=== PATIENT | female | born 1990 | race Caucasian/White ===

== ENCOUNTER 2016-11-13 10:26 | Outpatient (CLI) | payer MEDICAID ==
[2016-11-13 11:09] LABS: APPEARANCE,URINE CLEAR; BILIRUBIN,URINE NEGATIVE (NEGATIVE); GLUCOSE, URINE NEGATIVE (NEGATIVE); KETONES,URINE NEGATIVE (NEGATIVE); LEUKOCYTE ESTERASE,URINE TRACE (NEGATIVE); NITRITE,URINE NEGATIVE (NEGATIVE); PROTEIN,URINE NEGATIVE (NEGATIVE); URINE SPECIFIC GRAVITY 1.014
[2016-11-13 11:24] LABS: URINE BARBITURATES SCREEN NEGATIVE; URINE METHADONE SCREEN NEGATIVE; URINE OPIATES LOW NEGATIVE; URINE PHENCYCLIDINE SCREEN NEGATIVE
[2016-11-13] MEDS ORDERED: ONDANSETRON 4 MG TAB.RAPDIS PO ONE (12:39)
[2016-11-13] MEDS ORDERED: ONDANSETRON 4 MG TAB.RAPDIS ONE (12:45)
--- NOTE | 2016-11-13 12:50 | Non Stress Test Report ---
Non Stress Test Datetime Report Generated by CPN: 11/13/2016 12:50 DEMOGRAPHIC Test Number: 1 EGA NST: 33.3 INDICATION Indication for Study: Ordered by Provider Indication for Study (NST) Other: LC MONITORING Monitor Explained: Monitor Explained; Test Explained; Patient Verbalized Understanding Time on Monitor: 11/13/2016 10:45 Time off Monitor: 11/13/2016 12:36 NST Duration: 111 NST INTERVENTIONS NST Interventions: PO Hydration Physician Notified NST: J. Benson, CNM BABY A: [id number] BABY A Movement : Present Contraction Frequency : Irritability FHR Baseline : 140 Accelerations : 15X15 Decelerations : None Variability : Moderate 6-25bpm NST Review: Meets Criteria for Reactive NST NST Review and Verified By : LIA Mckoy Results: Reactive NST REPORT Report Trigger: Send Report
== END 2016-11-13 12:44 | disposition home or self-care (01) ==
LOC: LC 10:26
PROVIDERS: ATTEND Specialist
PROC: 4A1HXCZ Monitoring of Products of Conception, Cardiac Rate, External Approach (ICD-10-PCS; principal; 2016-11-13)
DX: O47.03 False labor before 37 completed weeks of gestation, third trimester (principal); Z3A.33 33 weeks gestation of pregnancy
CPT/HCPCS: 59025; 81001; 80307; S0119

== ENCOUNTER 2016-11-20 08:42 | Outpatient (CLI) | payer MEDICAID ==
[2016-11-20 09:28] LABS: ABSOLUTE EOSINOPHILS # (AUTO) 0.1 10^3/uL (0.0-0.6); ABSOLUTE LYMPHOCYTES (AUTO) 1.1 10^3/uL (0.5-4.7); ABSOLUTE MONOCYTES (AUTO) 0.6 10^3/uL (0.1-1.4); ABSOLUTE NEUT (AUTO) 6.7 10^3/uL (1.7-8.2); BASOPHILS % (AUTO) 0.3 % (0-2); EOSINOPHILS % (AUTO) 0.9 % (0-6); HEMATOCRIT 35.9 % (36.0-47.0); HEMOGLOBIN 12.5 g/dL (12.0-15.5); HGB HCT DIFFERENCE 1.6; LYMPHOCYTES % (AUTO) 12.8 % (13-45); MEAN CORPUSCULAR HEMOGLOBIN 30.7 pg (27.0-33.4); MEAN CORPUSCULAR HGB CONC 34.7 g/dL (32.0-36.0); MEAN CORPUSCULAR VOLUME 89 fl (80-97); MONOCYTES % (AUTO) 7.3 % (3-13); RED BLOOD COUNT 4.06 10^6/uL (3.72-5.28); RED CELL DISTRIBUTION WIDTH 12.1 % (11.5-14.0); SEGMENTED NEUTROPHILS % (AUTO) 78.7 % (42-78); WHITE BLOOD COUNT 8.5 10^3/uL (4.0-10.5)
[2016-11-20 09:34] LABS: APPEARANCE,URINE SLIGHTLY-CLOUDY; BILIRUBIN,URINE NEGATIVE (NEGATIVE); GLUCOSE, URINE NEGATIVE (NEGATIVE); KETONES,URINE NEGATIVE (NEGATIVE); LEUKOCYTE ESTERASE,URINE MODERATE (NEGATIVE); NITRITE,URINE NEGATIVE (NEGATIVE); PROTEIN,URINE 30 mg/dL (NEGATIVE); URINE SPECIFIC GRAVITY 1.016
[2016-11-20 09:58] LABS: URINE CREATININE 122.7 mg/dL (16-327); URINE PROTEIN 30.9 mg/dL (<12)
[2016-11-20 09:59] LABS: URINE BARBITURATES SCREEN NEGATIVE; URINE METHADONE SCREEN NEGATIVE; URINE OPIATES LOW NEGATIVE; URINE PHENCYCLIDINE SCREEN NEGATIVE
[2016-11-20 10:02] LABS: ALANINE AMINOTRANSFERASE 52 U/L (9-52); ALBUMIN 3.2 g/dL (3.5-5.0); ALKALINE PHOSPHATASE 122 U/L (38-126); ANION GAP 9 (5-19); ASPARTATE AMINO TRANSFERASE 29 U/L (14-36); BILIRUBIN,DIRECT 0.3 mg/dL (0.0-0.4); BILIRUBIN,TOTAL 0.4 mg/dL (0.2-1.3); BLOOD UREA NITROGEN 6 mg/dL (7-20); CALCIUM 9.1 mg/dL (8.4-10.2); CARBON DIOXIDE 22 mmol/L (22-30); CHLORIDE 105 mmol/L (98-107); CREATININE RESULT 0.54 mg/dL (0.52-1.25); GLUCOSE 76 mg/dL (75-110); LDH 344 U/L (313-618); POTASSIUM 4.1 mmol/L (3.6-5.0); SODIUM 136.4 mmol/L (137-145); TOTAL PROTEIN 5.8 g/dL (6.3-8.2); URIC ACID 3.9 mg/dL (2.5-6.2)
== END 2016-11-20 10:21 | disposition home or self-care (01) ==
LOC: LC 08:42
PROVIDERS: ATTEND Specialist
DX: Z34.83 Encounter for supervision of other normal pregnancy, third trimester (principal); Z3A.34 34 weeks gestation of pregnancy
CPT/HCPCS: 36415; 59025; 80053; 80307; 81001; 82570; 83615; 84156; 84550; 85025

== ENCOUNTER 2016-11-22 10:32 | Outpatient (CLI) | payer MEDICAID ==
--- NOTE | 2016-11-22 10:45 | Non Stress Test Report ---
Non Stress Test Datetime Report Generated by CPN: 11/22/2016 10:45 DEMOGRAPHIC EGA NST: 34.3 INDICATION Indication for Study: Ordered by Provider MONITORING Monitor Explained: Monitor Explained; Test Explained; Patient Verbalized Understanding Time on Monitor: 11/20/2016 09:01 Time off Monitor: 11/20/2016 10:13 NST Duration: 72 NST INTERVENTIONS NST Interventions: None Physician Notified NST: A. Emmel, CNM BABY A: [id number] BABY A Movement : Present Contraction Frequency : occasional FHR Baseline : 150 Accelerations : 15X15 Decelerations : None Variability : Moderate 6-25bpm NST Review: Meets Criteria for Reactive NST NST Review and Verified By : Agnieszka Grace RN NSJosse Results: Reactive NST REPORT Report Trigger: Send Report
--- NOTE | 2016-11-22 11:35 | Non Stress Test Report ---
Non Stress Test Datetime Report Generated by CPN: 11/22/2016 11:35 DEMOGRAPHIC EGA NST: 34.5 INDICATION Indication for Study: Ordered by Provider MONITORING Monitor Explained: Monitor Explained; Test Explained; Patient Verbalized Understanding Time on Monitor: 11/22/2016 10:46 Time off Monitor: 11/22/2016 11:21 NST Duration: 35 NST INTERVENTIONS NST Interventions: PO Hydration Physician Notified NST: Ata Perez, CNM reviewed strip, orders received to send home BABY A Movement : Present Contraction Frequency : none FHR Baseline : 140 Accelerations : 15X15 Decelerations : None Variability : Moderate 6-25bpm NST Review: Meets Criteria for Reactive NST NST Review and Verified By : ILA Mckoy Results: Reactive NST REPORT Report Trigger: Send Report
== END 2016-11-22 11:32 | disposition home or self-care (01) ==
LOC: LC 10:32
PROVIDERS: ATTEND Obstetrics & Gynecology
DX: Z34.83 Encounter for supervision of other normal pregnancy, third trimester (principal); Z3A.34 34 weeks gestation of pregnancy
CPT/HCPCS: 59025

== ENCOUNTER 2016-11-26 10:02 | Outpatient (CLI) | payer MEDICAID ==
[2016-11-26 10:42] LABS: ABSOLUTE BASOPHILS # (AUTO) 0.1 10^3/uL (0.0-0.2); ABSOLUTE EOSINOPHILS # (AUTO) 0.1 10^3/uL (0.0-0.6); ABSOLUTE LYMPHOCYTES (AUTO) 1.3 10^3/uL (0.5-4.7); ABSOLUTE MONOCYTES (AUTO) 0.6 10^3/uL (0.1-1.4); ABSOLUTE NEUT (AUTO) 8.7 10^3/uL (1.7-8.2); BASOPHILS % (AUTO) 0.9 % (0-2); EOSINOPHILS % (AUTO) 0.7 % (0-6); HEMATOCRIT 36.8 % (36.0-47.0); HEMOGLOBIN 12.6 g/dL (12.0-15.5); LYMPHOCYTES % (AUTO) 12.2 % (13-45); MEAN CORPUSCULAR HEMOGLOBIN 30.2 pg (27.0-33.4); MEAN CORPUSCULAR HGB CONC 34.3 g/dL (32.0-36.0); MEAN CORPUSCULAR VOLUME 88 fl (80-97); MONOCYTES % (AUTO) 5.9 % (3-13); RED BLOOD COUNT 4.18 10^6/uL (3.72-5.28); RED CELL DISTRIBUTION WIDTH 12.3 % (11.5-14.0); SEGMENTED NEUTROPHILS % (AUTO) 80.3 % (42-78); WHITE BLOOD COUNT 10.8 10^3/uL (4.0-10.5)
[2016-11-26 10:50] LABS: APPEARANCE,URINE CLOUDY; BILIRUBIN,URINE NEGATIVE (NEGATIVE); GLUCOSE, URINE 50 mg/dL (NEGATIVE); KETONES,URINE NEGATIVE (NEGATIVE); LEUKOCYTE ESTERASE,URINE LARGE (NEGATIVE); NITRITE,URINE NEGATIVE (NEGATIVE); PROTEIN,URINE 30 mg/dL (NEGATIVE); URINE SPECIFIC GRAVITY 1.015
[2016-11-26 11:07] LABS: URIC ACID 3.9 mg/dL (2.5-6.2)
[2016-11-26 11:18] LABS: URINE CREATININE 86.3 mg/dL (16-327)
[2016-11-26 11:21] LABS: URINE BARBITURATES SCREEN NEGATIVE; URINE METHADONE SCREEN NEGATIVE; URINE OPIATES LOW NEGATIVE; URINE PHENCYCLIDINE SCREEN NEGATIVE
== END 2016-11-26 11:50 | disposition home or self-care (01) ==
LOC: LC 10:02
PROVIDERS: ATTEND Obstetrics & Gynecology
PROC: 4A1HXCZ Monitoring of Products of Conception, Cardiac Rate, External Approach (ICD-10-PCS; principal; 2016-11-26)
DX: O16.3 Unspecified maternal hypertension, third trimester (principal); Z3A.35 35 weeks gestation of pregnancy
CPT/HCPCS: 36415; 80307; 81001; 82570; 83615; 84156; 84550; 85025

== ENCOUNTER 2016-11-28 10:04 | Outpatient (CLI) | payer MEDICAID ==
--- NOTE | 2016-11-28 10:14 | Non Stress Test Report ---
Non Stress Test Datetime Report Generated by CPN: 11/28/2016 10:14 DEMOGRAPHIC EGA NST: 35.2 INDICATION Indication for Study: Ordered by Provider Indication for Study (NST) Other: nst MONITORING Monitor Explained: Monitor Explained; Test Explained; Patient Verbalized Understanding Time on Monitor: 11/26/2016 11:20 Time off Monitor: 11/26/2016 11:40 NST Duration: 20 NST INTERVENTIONS NST Interventions: PO Hydration; Reposition Patient Physician Notified NST: J Benson CNM BABY A: [id number] BABY A Movement : Present Movement : Present Contraction Frequency : irregular Contraction Frequency : irr FHR Baseline : 140 Accelerations : 15X15 Decelerations : None Variability : Moderate 6-25bpm NST Review: Meets Criteria for Reactive NST NST Review: Meets Criteria for Reactive NST NST Review and Verified By : Manisha Pope RN NST Results: Reactive NST REPORT Report Trigger: Send Report
[2016-11-28 10:46] LABS: AMORPHOUS SEDIMENT,URINE TRACE /HPF; APPEARANCE,URINE CLOUDY; BILIRUBIN,URINE NEGATIVE (NEGATIVE); GLUCOSE, URINE NEGATIVE (NEGATIVE); KETONES,URINE NEGATIVE (NEGATIVE); LEUKOCYTE ESTERASE,URINE LARGE (NEGATIVE); NITRITE,URINE NEGATIVE (NEGATIVE); PROTEIN,URINE 30 mg/dL (NEGATIVE); URINE SPECIFIC GRAVITY 1.018
[2016-11-28 10:53] LABS: ABSOLUTE EOSINOPHILS # (AUTO) 0.1 10^3/uL (0.0-0.6); ABSOLUTE LYMPHOCYTES (AUTO) 1.5 10^3/uL (0.5-4.7); ABSOLUTE MONOCYTES (AUTO) 0.7 10^3/uL (0.1-1.4); ABSOLUTE NEUT (AUTO) 6.5 10^3/uL (1.7-8.2); BASOPHILS % (AUTO) 0.4 % (0-2); EOSINOPHILS % (AUTO) 0.7 % (0-6); HEMATOCRIT 35.5 % (36.0-47.0); HEMOGLOBIN 12.4 g/dL (12.0-15.5); HGB HCT DIFFERENCE 1.7; LYMPHOCYTES % (AUTO) 16.8 % (13-45); MEAN CORPUSCULAR HEMOGLOBIN 29.8 pg (27.0-33.4); MEAN CORPUSCULAR HGB CONC 34.9 g/dL (32.0-36.0); MEAN CORPUSCULAR VOLUME 86 fl (80-97); MONOCYTES % (AUTO) 7.7 % (3-13); RED BLOOD COUNT 4.15 10^6/uL (3.72-5.28); RED CELL DISTRIBUTION WIDTH 12.6 % (11.5-14.0); SEGMENTED NEUTROPHILS % (AUTO) 74.4 % (42-78); WHITE BLOOD COUNT 8.8 10^3/uL (4.0-10.5)
[2016-11-28 11:00] LABS: ALANINE AMINOTRANSFERASE 38 U/L (9-52); ALBUMIN 3.4 g/dL (3.5-5.0); ALKALINE PHOSPHATASE 144 U/L (38-126); ANION GAP 10 (5-19); ASPARTATE AMINO TRANSFERASE 22 U/L (14-36); BILIRUBIN,DIRECT 0.3 mg/dL (0.0-0.4); BILIRUBIN,TOTAL 0.4 mg/dL (0.2-1.3); BLOOD UREA NITROGEN 5 mg/dL (7-20); CALCIUM 9.5 mg/dL (8.4-10.2); CARBON DIOXIDE 21 mmol/L (22-30); CHLORIDE 105 mmol/L (98-107); CREATININE RESULT 0.56 mg/dL (0.52-1.25); GLUCOSE 78 mg/dL (75-110); LDH 326 U/L (313-618); POTASSIUM 4.2 mmol/L (3.6-5.0); SODIUM 136.1 mmol/L (137-145); URIC ACID 3.9 mg/dL (2.5-6.2)
[2016-11-28 11:22] LABS: URINE CREATININE 125.9 mg/dL (16-327); URINE PROTEIN 19.9 mg/dL (<12)
[2016-11-28] MEDS ORDERED: CEFTRIAXONE INJ 1000 MG VIAL IM ONE (12:52)
[2016-11-28] MEDS ORDERED: HYDROXYZINE PAMOATE 50 MG CAPSULE PO ONE (12:52)
[2016-11-28] MEDS ORDERED: HYDROXYZINE PAMOATE 50 MG CAPSULE ONE (13:11)
[2016-11-28] MEDS ORDERED: CEFTRIAXONE 1 GM/D5W RTU 1 GM/50 ML RTUPB IV ONE (13:11)
[2016-11-28] MEDS ORDERED: NIFEDIPINE 10 MG CAPSULE PO ONE (14:45)
[2016-11-28] MEDS ORDERED: OXYCODONE-ACETAMINOPHEN 5-325 MG TABLET PO ONE (14:46)
[2016-11-28] MEDS ORDERED: OXYCODONE-ACETAMINOPHEN 5-325 MG TABLET ONE (14:53)
[2016-11-28] MEDS ORDERED: NIFEDIPINE 10 MG CAPSULE ONE (14:53)
--- NOTE | 2016-11-28 18:01 | RADIOLOGY REPORT (SQ) ---
EXAM DESCRIPTION: U/S OB LIMITED COMPLETED DATE/TIME: 11/28/2016 5:54 pm REASON FOR STUDY: Cervical length-- contractions COMPARISON: None. TECHNIQUE: Limited transabdominal grayscale ultrasound for evaluation of specific requested obstetri belkis parameters. LIMITATIONS: None. FINDINGS: CERVICAL LENGTH: 4.4 cm. Closed. PILO: 26.4 cm. FHR: 153 beats per minute. PRESENTATION: Cephalic. OTHER: The placenta is posterior and fundal in location. IMPRESSION: LIMITED OBSTETRICAL ULTRASOUND WITH MEASURED PARAMETERS DELINEATED ABOVE. Trimester of : Third trimester - 28 weeks to delivery. TECHNICAL DOCUMENTATION: JOB ID: [id number] [employer]- All Rights Reserved
== END 2016-11-28 18:46 | disposition home or self-care (01) ==
LOC: LC 10:04
PROVIDERS: ATTEND Obstetrics & Gynecology
PROC: 4A1HXCZ Monitoring of Products of Conception, Cardiac Rate, External Approach (ICD-10-PCS; principal; 2016-11-28)
DX: O47.03 False labor before 37 completed weeks of gestation, third trimester (principal); Z3A.35 35 weeks gestation of pregnancy
CPT/HCPCS: 59025; 36415; 83615; 84156; 84550; 82570; 85025; 80053; 81001; 76815; J3490 ×2; J0696

== ENCOUNTER 2016-11-29 21:56 | Outpatient (CLI) | payer MEDICAID ==
[2016-11-29 23:20] LABS: APPEARANCE,URINE SLIGHTLY-CLOUDY; BILIRUBIN,URINE NEGATIVE (NEGATIVE); GLUCOSE, URINE NEGATIVE (NEGATIVE); KETONES,URINE 80 mg/dL (NEGATIVE); LEUKOCYTE ESTERASE,URINE SMALL (NEGATIVE); NITRITE,URINE NEGATIVE (NEGATIVE); PROTEIN,URINE 30 mg/dL (NEGATIVE); URINE SPECIFIC GRAVITY 1.026
[2016-11-29 23:38] LABS: URINE BARBITURATES SCREEN NEGATIVE; URINE METHADONE SCREEN NEGATIVE; URINE OPIATES LOW NEGATIVE; URINE PHENCYCLIDINE SCREEN NEGATIVE
--- NOTE | 2016-11-29 23:40 | Non Stress Test Report ---
Non Stress Test Datetime Report Generated by CPN: 11/29/2016 23:40 DEMOGRAPHIC EGA NST: 35.5 EGA NST: 35.4 INDICATION Indication for Study: Ordered by Provider Indication for Study: Other Indication for Study (NST) Other: Pre E work up VITAL SIGNS Temperature - NST: 98.0 URINE RESULTS Urine Protein, NST: Negative Urine Ketones - NST: Positive Urine Glucose - NST: Negative Urine Blood - NST: Negative MONITORING Monitor Explained: Monitor Explained; Test Explained; Patient Verbalized Understanding Monitor Explained: Monitor Explained; Test Explained; Patient Verbalized Understanding Time on Monitor: 11/29/2016 23:12 Time on Monitor: 11/28/2016 10:20 NST INTERVENTIONS NST Interventions: PO Hydration; Reposition Patient Physician Notified NST: Neilsen BABY A: [id number] BABY A Movement : Present Contraction Frequency : 2-5 FHR Baseline : 140 Accelerations : 15X15 Decelerations : None Variability : Moderate 6-25bpm NST Review: Meets Criteria for Reactive NST NST Review and Verified By : B. Ring RN NST Results: Reactive NST REPORT Report Trigger: Send Report
== END 2016-11-29 23:42 | disposition home or self-care (01) ==
LOC: LC 21:56
PROVIDERS: ATTEND Specialist
PROC: 4A1HXCZ Monitoring of Products of Conception, Cardiac Rate, External Approach (ICD-10-PCS; principal; 2016-11-29)
DX: O14.93 Unspecified pre-eclampsia, third trimester (principal); Z3A.35 35 weeks gestation of pregnancy
CPT/HCPCS: 59025; 80307; 81001

== ENCOUNTER 2016-12-02 09:10 | Outpatient (CLI) | payer MEDICAID ==
[2016-12-02 10:03] LABS: ABSOLUTE BASOPHILS # (AUTO) 0.1 10^3/uL (0.0-0.2); ABSOLUTE EOSINOPHILS # (AUTO) 0.1 10^3/uL (0.0-0.6); ABSOLUTE LYMPHOCYTES (AUTO) 1.3 10^3/uL (0.5-4.7); ABSOLUTE MONOCYTES (AUTO) 0.6 10^3/uL (0.1-1.4); BASOPHILS % (AUTO) 0.6 % (0-2); EOSINOPHILS % (AUTO) 0.7 % (0-6); HEMATOCRIT 35.1 % (36.0-47.0); HEMOGLOBIN 12.6 g/dL (12.0-15.5); HGB HCT DIFFERENCE 2.7; LYMPHOCYTES % (AUTO) 14.6 % (13-45); MEAN CORPUSCULAR HEMOGLOBIN 30.8 pg (27.0-33.4); MEAN CORPUSCULAR HGB CONC 35.9 g/dL (32.0-36.0); MEAN CORPUSCULAR VOLUME 86 fl (80-97); MONOCYTES % (AUTO) 6.4 % (3-13); RED BLOOD COUNT 4.09 10^6/uL (3.72-5.28); RED CELL DISTRIBUTION WIDTH 12.6 % (11.5-14.0); SEGMENTED NEUTROPHILS % (AUTO) 77.7 % (42-78)
[2016-12-02 10:10] LABS: APPEARANCE,URINE SLIGHTLY-CLOUDY; BILIRUBIN,URINE NEGATIVE (NEGATIVE); GLUCOSE, URINE NEGATIVE (NEGATIVE); KETONES,URINE NEGATIVE (NEGATIVE); LEUKOCYTE ESTERASE,URINE LARGE (NEGATIVE); NITRITE,URINE NEGATIVE (NEGATIVE); PROTEIN,URINE NEGATIVE (NEGATIVE); UROBILINOGEN,URINE NEGATIVE mg/dL (<2.0)
--- NOTE | 2016-12-02 10:18 | Non Stress Test Report ---
Non Stress Test Datetime Report Generated by CPN: 12/02/2016 10:17 DEMOGRAPHIC EGA NST: 36.1 INDICATION Indication for Study: Gestational Hypertension; Ordered by Provider MONITORING Monitor Explained: Monitor Explained; Test Explained; Patient Verbalized Understanding Time on Monitor: 12/02/2016 09:22 Time off Monitor: 12/02/2016 10:03 NST Duration: 41 NST INTERVENTIONS NST Interventions: PO Hydration Physician Notified NST: H. Gulshan, CNM BABY A: [id number] BABY A Movement : Present Contraction Frequency : 3-5 FHR Baseline : 145 Accelerations : 15X15 Decelerations : None Variability : Moderate 6-25bpm NST Review: Meets Criteria for Reactive NST NST Review and Verified By : LIA Mckoy Results: Reactive NST REPORT Report Trigger: Send Report
[2016-12-02 10:26] LABS: ALANINE AMINOTRANSFERASE 28 U/L (9-52); ALBUMIN 3.2 g/dL (3.5-5.0); ALKALINE PHOSPHATASE 135 U/L (38-126); ANION GAP 7 (5-19); ASPARTATE AMINO TRANSFERASE 19 U/L (14-36); BILIRUBIN,DIRECT 0.3 mg/dL (0.0-0.4); BILIRUBIN,TOTAL 0.3 mg/dL (0.2-1.3); BLOOD UREA NITROGEN 5 mg/dL (7-20); CALCIUM 9.3 mg/dL (8.4-10.2); CARBON DIOXIDE 24 mmol/L (22-30); CHLORIDE 107 mmol/L (98-107); CREATININE RESULT 0.53 mg/dL (0.52-1.25); GLUCOSE 92 mg/dL (75-110); LDH 374 U/L (313-618); SODIUM 138.4 mmol/L (137-145); TOTAL PROTEIN 5.7 g/dL (6.3-8.2); URIC ACID 4.2 mg/dL (2.5-6.2)
[2016-12-02 10:28] LABS: URINE BARBITURATES SCREEN NEGATIVE; URINE METHADONE SCREEN NEGATIVE; URINE OPIATES LOW NEGATIVE; URINE PHENCYCLIDINE SCREEN NEGATIVE
[2016-12-02 10:37] LABS: URINE CREATININE 82.2 mg/dL (16-327); URINE PROTEIN 23.3 mg/dL (<12)
== END 2016-12-02 11:17 | disposition home or self-care (01) ==
LOC: LC 09:10
PROVIDERS: ATTEND Obstetrics & Gynecology
PROC: 4A1HXCZ Monitoring of Products of Conception, Cardiac Rate, External Approach (ICD-10-PCS; principal; 2016-12-02)
DX: O13.3 Gestational [pregnancy-induced] hypertension without significant proteinuria, third trimester (principal); Z3A.36 36 weeks gestation of pregnancy
CPT/HCPCS: 36415; 59025; 80053; 80307; 81001; 82570; 83615; 84156; 84550; 85025

== ENCOUNTER 2016-12-04 14:37 | Outpatient (CLI) | payer MEDICAID ==
[2016-12-04 16:04] LABS: ABSOLUTE EOSINOPHILS # (AUTO) 0.1 10^3/uL (0.0-0.6); ABSOLUTE LYMPHOCYTES (AUTO) 1.6 10^3/uL (0.5-4.7); ABSOLUTE MONOCYTES (AUTO) 0.7 10^3/uL (0.1-1.4); ABSOLUTE NEUT (AUTO) 7.2 10^3/uL (1.7-8.2); BASOPHILS % (AUTO) 0.4 % (0-2); EOSINOPHILS % (AUTO) 1.1 % (0-6); HEMATOCRIT 34.3 % (36.0-47.0); HEMOGLOBIN 11.8 g/dL (12.0-15.5); HGB HCT DIFFERENCE 1.1; LYMPHOCYTES % (AUTO) 16.2 % (13-45); MEAN CORPUSCULAR HEMOGLOBIN 29.6 pg (27.0-33.4); MEAN CORPUSCULAR HGB CONC 34.4 g/dL (32.0-36.0); MEAN CORPUSCULAR VOLUME 86 fl (80-97); MONOCYTES % (AUTO) 7.4 % (3-13); RED BLOOD COUNT 3.99 10^6/uL (3.72-5.28); RED CELL DISTRIBUTION WIDTH 12.6 % (11.5-14.0); SEGMENTED NEUTROPHILS % (AUTO) 74.9 % (42-78); WHITE BLOOD COUNT 9.7 10^3/uL (4.0-10.5)
[2016-12-04 16:07] LABS: ALANINE AMINOTRANSFERASE 30 U/L (9-52); ALBUMIN 3.2 g/dL (3.5-5.0); ALKALINE PHOSPHATASE 140 U/L (38-126); ANION GAP 11 (5-19); ASPARTATE AMINO TRANSFERASE 19 U/L (14-36); BILIRUBIN,DIRECT 0.3 mg/dL (0.0-0.4); BILIRUBIN,TOTAL 0.4 mg/dL (0.2-1.3); BLOOD UREA NITROGEN 5 mg/dL (7-20); CALCIUM 9.2 mg/dL (8.4-10.2); CARBON DIOXIDE 19 mmol/L (22-30); CHLORIDE 106 mmol/L (98-107); CREATININE RESULT 0.45 mg/dL (0.52-1.25); GLUCOSE 75 mg/dL (75-110); LDH 365 U/L (313-618); POTASSIUM 3.9 mmol/L (3.6-5.0); SODIUM 135.5 mmol/L (137-145); TOTAL PROTEIN 5.8 g/dL (6.3-8.2); URIC ACID 3.9 mg/dL (2.5-6.2)
[2016-12-04 16:14] LABS: APPEARANCE,URINE CLEAR; BILIRUBIN,URINE NEGATIVE (NEGATIVE); GLUCOSE, URINE NEGATIVE (NEGATIVE); KETONES,URINE NEGATIVE (NEGATIVE); LEUKOCYTE ESTERASE,URINE LARGE (NEGATIVE); NITRITE,URINE NEGATIVE (NEGATIVE); PROTEIN,URINE NEGATIVE (NEGATIVE); URINE SPECIFIC GRAVITY 1.008; UROBILINOGEN,URINE NEGATIVE mg/dL (<2.0)
[2016-12-04 16:27] LABS: URINE BARBITURATES SCREEN NEGATIVE; URINE METHADONE SCREEN NEGATIVE; URINE OPIATES LOW NEGATIVE; URINE PHENCYCLIDINE SCREEN NEGATIVE
--- NOTE | 2016-12-04 16:32 | Non Stress Test Report ---
Non Stress Test Datetime Report Generated by CPN: 12/04/2016 16:32 DEMOGRAPHIC EGA NST: 36.3 INDICATION Indication for Study: Ordered by Provider Indication for Study: Gestational Hypertension Indication for Study (NST) Other: lc MONITORING Monitor Explained: Monitor Explained; Test Explained; Patient Verbalized Understanding Time on Monitor: 12/04/2016 15:07 Time off Monitor: 12/04/2016 16:17 NST Duration: 70 NST INTERVENTIONS NST Interventions: PO Hydration; Reposition Patient Physician Notified NST: Dr Neilsen Physician Notified NST: Dr Neilsen BABY A: [id number] BABY A Movement : Present Contraction Frequency : irritability FHR Baseline : 140 Accelerations : 15X15 Decelerations : None Variability : Moderate 6-25bpm NST Review: Meets Criteria for Reactive NST NST Review and Verified By : Estephania Novak RNC NST Results: Reactive NST REPORT Report Trigger: Send Report
[2016-12-04 16:35] LABS: URINE CREATININE 57.2 mg/dL (16-327); URINE PROTEIN 13.9 mg/dL (<12)
== END 2016-12-04 16:25 | disposition home or self-care (01) ==
LOC: LC 14:37
PROVIDERS: ATTEND Specialist
PROC: 4A1HXCZ Monitoring of Products of Conception, Cardiac Rate, External Approach (ICD-10-PCS; principal; 2016-12-04)
DX: O13.3 Gestational [pregnancy-induced] hypertension without significant proteinuria, third trimester (principal); Z3A.36 36 weeks gestation of pregnancy
CPT/HCPCS: 36415; 59025; 80053; 80307; 81001; 82570; 83615; 84156; 84550; 85025

== ENCOUNTER 2016-12-08 09:56 | Inpatient (IN) | payer MEDICAID ==
[2016-12-08] MEDS ORDERED: RINGERS SOLUTION,LACTATED 1,000 ML IV PRN (18:45)
[2016-12-08] MEDS ORDERED: DINOPROSTONE 10 MG VAGINAL INSERT.SR PV PRN (18:45)
[2016-12-08 19:04] LABS: APPEARANCE,URINE SLIGHTLY-CLOUDY; BILIRUBIN,URINE NEGATIVE (NEGATIVE); GLUCOSE, URINE NEGATIVE (NEGATIVE); KETONES,URINE NEGATIVE (NEGATIVE); LEUKOCYTE ESTERASE,URINE SMALL (NEGATIVE); NITRITE,URINE NEGATIVE (NEGATIVE); PROTEIN,URINE 30 mg/dL (NEGATIVE); URINE SPECIFIC GRAVITY 1.023
[2016-12-08 19:15] LABS: URINE BARBITURATES SCREEN NEGATIVE; URINE METHADONE SCREEN NEGATIVE; URINE OPIATES LOW NEGATIVE; URINE PHENCYCLIDINE SCREEN NEGATIVE
[2016-12-08 19:18] LABS: ABSOLUTE EOSINOPHILS # (AUTO) 0.1 10^3/uL (0.0-0.6); ABSOLUTE LYMPHOCYTES (AUTO) 1.6 10^3/uL (0.5-4.7); ABSOLUTE MONOCYTES (AUTO) 0.7 10^3/uL (0.1-1.4); ABSOLUTE NEUT (AUTO) 6.3 10^3/uL (1.7-8.2); BASOPHILS % (AUTO) 0.4 % (0-2); EOSINOPHILS % (AUTO) 0.8 % (0-6); HEMATOCRIT 32.3 % (36.0-47.0); HEMOGLOBIN 11.5 g/dL (12.0-15.5); HGB HCT DIFFERENCE 2.2; LYMPHOCYTES % (AUTO) 18.1 % (13-45); MEAN CORPUSCULAR HGB CONC 35.5 g/dL (32.0-36.0); MEAN CORPUSCULAR VOLUME 85 fl (80-97); MONOCYTES % (AUTO) 8.4 % (3-13); RED BLOOD COUNT 3.82 10^6/uL (3.72-5.28); RED CELL DISTRIBUTION WIDTH 12.7 % (11.5-14.0); SEGMENTED NEUTROPHILS % (AUTO) 72.3 % (42-78); WHITE BLOOD COUNT 8.8 10^3/uL (4.0-10.5)
[2016-12-08 19:20] LABS: URINE CREATININE 142.5 mg/dL (16-327)
[2016-12-08 19:33] LABS: ALANINE AMINOTRANSFERASE 26 U/L (9-52); ALBUMIN 3.2 g/dL (3.5-5.0); ALKALINE PHOSPHATASE 138 U/L (38-126); ANION GAP 10 (5-19); ASPARTATE AMINO TRANSFERASE 19 U/L (14-36); BILIRUBIN,DIRECT 0.3 mg/dL (0.0-0.4); BILIRUBIN,TOTAL 0.4 mg/dL (0.2-1.3); BLOOD UREA NITROGEN 8 mg/dL (7-20); CALCIUM 9.4 mg/dL (8.4-10.2); CARBON DIOXIDE 20 mmol/L (22-30); CHLORIDE 107 mmol/L (98-107); CREATININE RESULT 0.63 mg/dL (0.52-1.25); GLUCOSE 95 mg/dL (75-110); LDH 370 U/L (313-618); TOTAL PROTEIN 5.8 g/dL (6.3-8.2); URIC ACID 5.4 mg/dL (2.5-6.2)
[2016-12-08] MEDS ORDERED: DINOPROSTONE 10 MG VAGINAL INSERT.SR ONE (20:00)
[2016-12-08] MEDS ORDERED: ZOLPIDEM TARTRATE 5 MG TABLET PO ONE (21:05)
[2016-12-08] MEDS ORDERED: ZOLPIDEM TARTRATE 5 MG TABLET ONE (21:22)
[2016-12-09] MEDS ORDERED: ACETAMINOPHEN 325 MG TABLET ONE ×3 (04:14→21:01)
[2016-12-09] MEDS ORDERED: ACETAMINOPHEN 325 MG TABLET PO ONE ×2 (04:45→09:30)
--- NOTE | 2016-12-09 09:19 | L&D Progress Notes ---
PROGRESS NOTES Datetime Report Generated by CPN: 12/09/2016 09:19 PROGRESS NOTE Impression Other: IOL- stable Procedures- Other: morning rounds Plan: Continue Present Management; Induction Informed Consent Obtained: Vaginal Delivery; Risks, Benefits and Alternatives Discussed Vital Signs : Reviewed; Within Normal Limits Comment: S: reports ARECHIGA that has not gone away (received medication around 3am). Denies visual disturbances, RUQ or other concerns. Reports +FM, denies LOF/bleeding. In bed eating breakfast right now. O: as stated above, cervidil in place A: IUP @ 37w1d- IOL for GHTN-stable P: cervidil to be removed at 0930, will give tylenol for headache right now. Can shower after cervidil removal. Reasesses for dilation after removal of cervidil. Plan on pitocin or cytotec depending on dilation after cervidil removal. Pt. asked questions and verbalized understanding. VAGINAL EXAM Dilatation: 0 Effacement: 0 Station: -3 Contractions: rare MEMBRANES Pooling: Negative Membranes: Intact Membranes: Intact FETUS A Monitoring: External US FHR Category: Category I : 37.1 Estimated Weight (gm): 3400 Presentation: Vertex SIGNATURE SIGNATURE: [id number];[id number] SIGNATURE: [id number] SIGNATURE: [id number] SIGNATURE: [id number] SIGNATURE: 14,[id number] SIGNATURE: 14,[id number] SIGNATURE: 14,[id number] SIGNATURE: 14,[id number] Assignment: Ngozi Farris MD Signature: with User ID: Justice : with User ID: Justice
[2016-12-09] MEDS ORDERED: OXYTOCIN/NORMAL SALINE 0 UNIT/0 ML RTUINJ ONE (10:55)
[2016-12-09] MEDS: OXYTOCIN/NORMAL SALINE 20 UNIT/1,000 ML RTUINJ IV PRN ×2 (12:00→20:24)
--- NOTE | 2016-12-09 14:52 | L&D Progress Notes ---
PROGRESS NOTES Datetime Report Generated by CPN: 12/09/2016 14:52 PROGRESS NOTE Impression Other: IOL-stable Procedures: Artificial ROM; Sterile Vag Exam Plan: Continue Present Management Informed Consent Obtained: Vaginal Delivery; Induction of Labor; Risks, Benefits and Alternatives Discussed Vital Signs : Reviewed; Within Normal Limits Vital Signs Comments: mild range x1 Comment: S: reports increase pain with contractions, not ready for pain meds/epidural at this time O: pit @ 8mu/min, all others as stated above A: IUP @ 37w1d IOL for GHTN _ Poly-stable, AROM with FSE- clear fluid noted P: continue IOL with pitocin, reassess as clinically indicated or earlier prn. Pt. tolerated well. VAGINAL EXAM Dilatation: 5 Effacement: 70 Station: -2 Contractions: q2min MEMBRANES Membranes: Ruptured Amniotic Fluid Color: Clear FETUS A Monitoring: External US FHR Category: Category I FETUS C SIGNATURE: [id number];[id number] Assignment: Ngozi Farris MD Signature: with User ID: Justice : with User ID: Justice
[2016-12-09] MEDS ORDERED: MISOPROSTOL 0.2 MG TABLET ONE (15:08)
[2016-12-09] MEDS ORDERED: OXYTOCIN/NORMAL SALINE 20 UNIT/1,000 ML RTUINJ ONE (15:09)
[2016-12-09] MEDS ORDERED: LIDOCAINE 1% INJ-PF (10 MG/ML) 30 ML SDV ONE (15:09)
[2016-12-09] MEDS ORDERED: EPHEDRINE SULFATE INJ 50 MG/1 ML AMPULE ONE (16:56)
[2016-12-09] MEDS ORDERED: FENTANYL/BUPIVACAINE/NS/PF 200 MCG/100 ML RTUINJ EPI ONE (16:57)
[2016-12-09] MEDS ORDERED: BUPIVACAINE HCL 0.25 % INJ/PF (2.5 MG/1 ML) 30 ML VIAL ONE (16:57)
[2016-12-09] MEDS ORDERED: FENTANYL CITRATE INJ/PF 100 MCG/2 ML AMPUL ONE (17:02)
[2016-12-09] MEDS ORDERED: PHENYLEPHRINE HCL INJ/PF 10 MG/1 ML SDV ONE (17:03)
[2016-12-09] MEDS ORDERED: GENTAMICIN SULFATE INJ 80 MG/2 ML VIAL IV PRN (22:18)
[2016-12-09] MEDS ORDERED: GENTAMICIN SULFATE INJ 80 MG/2 ML VIAL ONE (22:33)
[2016-12-09] MEDS ORDERED: AMPICILLIN SOD INJ 2 GM VIAL ONE (22:33)
--- NOTE | 2016-12-09 22:33 | L&D Progress Notes ---
PROGRESS NOTES Datetime Report Generated by CPN: 12/09/2016 22:32 PROGRESS NOTE Procedures: Sterile Vag Exam Plan: Continue Present Management; Antibiotic Therapy Informed Consent Obtained: Vaginal Delivery; Risks, Benefits and Alternatives Discussed Vital Signs : Reviewed Vital Signs Comments: temp 101.3 Comment: cvx changed noted. Temp with intermittent tachy o/w reassuring FWB. Start Amp/Gent. Anticpate . FETUS C SIGNATURE: [id number];[id number] Signature: with User ID: [email or web address]
[2016-12-09] MEDS ORDERED: GENTAMICIN SULFATE 170 MG in DEXTROSE 5%-WATER 100 ML IV ONE (23:00)
[2016-12-09] MEDS ORDERED: GLYCERIN/WITCH HAZEL LEAF 1 EACH MED..PAD TP PRN (23:26)
[2016-12-09] MEDS ORDERED: ACETAMINOPHEN 650 MG SUPP.RECT PR PRN (23:26)
[2016-12-09] MEDS ORDERED: OXYTOCIN/NORMAL SALINE 20 UNIT/1,000 ML RTUINJ IV PRN (23:26)
[2016-12-09] MEDS ORDERED: NA PHOS,M-B/NA PHOS,DI-BA (ADULT) 133 ML ENEMA PR PRN (23:26)
[2016-12-09] MEDS ORDERED: DIBUCAINE 1% OINTMENT 28 GM TP PRN (23:26)
[2016-12-09] MEDS ORDERED: PROMETHAZINE HCL INJ 25 MG/1 ML VIAL IV PRN (23:26)
[2016-12-09] MEDS ORDERED: PROMETHAZINE HCL 25 MG SUPP.RECT PR PRN (23:26)
[2016-12-09] MEDS ORDERED: PROMETHAZINE HCL 25 MG TABLET PO PRN (23:26)
[2016-12-09] MEDS ORDERED: ACETAMINOPHEN WITH CODEINE #3 TABLET PO PRN ×2 (23:26)
[2016-12-09] MEDS ORDERED: MAGNESIUM HYDROXIDE SUSP 30 ML UDCUP PO PRN (23:26)
[2016-12-09] MEDS ORDERED: DIPH/PERTUSS(ACELL)/TETANUS VAC/PF 0.5 ML SYR (>=10YO) IM PRN (23:26)
[2016-12-09] MEDS ORDERED: MEASLES,MUMPS&RUBELLA VACC/PF 0.5 ML VIAL SUBCUT PRN (23:26)
[2016-12-09] MEDS ORDERED: ZOLPIDEM TARTRATE 5 MG TABLET PO PRN (23:26)
[2016-12-09] MEDS ORDERED: BENZOCAINE/MENTHOL AEROSOL SPRAY 56 ML TOP PRN (23:26)
[2016-12-09] MEDS ORDERED: ACETAMINOPHEN 325 MG TABLET PO PRN (23:26)
[2016-12-09] MEDS ORDERED: PSEUDOEPHEDRINE HCL 30 MG TABLET PO PRN (23:26)
[2016-12-09] MEDS ORDERED: DIPHENHYDRAMINE HCL 25 MG CAPSULE PO PRN (23:26)
--- NOTE | 2016-12-10 00:40 | Delivery Summary ---
Del Sum A-C Datetime Report Generated by CPN: 12/10/2016 00:40 DELIVERY PERSONNEL DELIVERY PERSONNEL: [id number] Delivery Doctor:: Ngozi Farris MD Anesthesiologist:: Gustavo Rivera MD Labor and Delivery Nurse:: Marge Machuca RNtour coordinator Nurse:: Modesta Mccullough RN Automation Developer:: Lizbeth Choi RN Windows Technical Specialist/LEATHER PRODUCTION WORKER: Kateryna Gallego, ST MATERNAL INFORMATION Delivery Anesthesia: Local; Epidural Medications After Delivery: Pitocin Drip 20 Units/1000ml NSS Estimated Blood Loss (ml): 250 Maternal Complications: Maternal Fever Provider Comments: VMI delivered in [place] presentation. No nuchal cord. Shoulders and body delivered w/o difficulty. Cord doubly clamped and cut and infant to maternal abdomen. Placenta delivered intact with manual extraction due to stuck at fundus. Manual exploration after extraction negative for retained products. FF at U. Good hemostasis after repair. Apgars 9/9. Weight pending. Mother and baby stable upon provider leaving the room. Dx with chorio just prior to delivery. LABOR SUMMARY EDC: 12/29/2016 00:00 No. Babies in Womb: 1 Attempted: No Labor Anesthesia: Epidural LABOR INFORMATION Reason for Induction: Gestational Hypertension; Polyhydramnios Onset of Labor: 12/09/2016 12:45 Complete Dilatation: 12/09/2016 22:40 Cervical Ripening Agents: Cervidil Oxytocin: Induction Group B Beta Strep: Negative Antibiotics # of Doses: 1 Antibiotics Time of Last Dose: 2250 Name of Antibiotic Given: Amp and Gent Steroids Given: None Reason Steroids Not Administered: Not Applicable MEMBRANES Membranes Rupture Method: Artificial Rupture of Membranes: 12/09/2016 14:41 Length of Rupture (hr): 8.22 Amniotic Fluid Color: Clear Amniotic Fluid Amount: Moderate Amniotic Fluid Odor: Normal STAGES OF LABOR Stage 1 hr: 9 Stage 1 min: 55 Stage 2 hr: 0 Stage 2 min: 14 Stage 3 hr: 0 Stage 3 min: 7 Total Time in Labor hr: 10 Total Time in Labor min: 16 VAGINAL DELIVERY Episiotomy: None Laceration Type: None Other Laceration: 1st degree periurethral Laceration Repair: Yes Laceration Repair Note: 1st degree periurethral laceration repeaired with bingham (straight cath) in place. Good hemostasis. Sponge Count Correct: Yes Sharps Count Correct: N/A CSECTION DELIVERY Primary Indication: N/A Secondary Indication: N/A Labor: N/A Elective: N/A BABY A INFORMATION Infant Delivery Date/Time: 12/09/2016 22:54 Method of Delivery: Vaginal Born in Route : No : N/A Forceps: N/A Vacuum Extraction: N/A Shoulder Dystocia : No PRESENTATION/POSITION BABY A Presentation: Cephalic Cephalic Presentation: N/A Vertex Position: Left Occipital Anterior Breech Presentation: N/A PLACENTA INFORMATION BABY A Placenta Delivery Time : 12/09/2016 23:01 Placenta Method of Delivery: Manual Removal Placenta Status: Delivered SCORES BABY A Heart Rate 1 min: >100 bpm Resp Effort 1 min: Good Cry Reflex Irritability 1 min: Cough or Sneeze or Pulls Away Muscle Tone 1 min: Active Motion Color 1 min: Body Dola, Extremities Blue SCORE 1 MIN: 9 Heart Rate 5 min: >100 bpm Resp Effort 5 min: Good Cry Reflex Irritability 5 min: Cough or Sneeze or Pulls Away Muscle Tone 5 min: Active Motion Color 5 min: Body Dola, Extremities Blue SCORE 5 MIN: 9 INFORMATION BABY A Gestational Age at Delivery: 37.1 Gestational Status: Early Term- 37- 38.6 Weeks Infant Outcome : Liveborn Infant Condition : Stable Infant Sex: Male IDENTIFICATION BABY A Verification Date/Time: 12/09/2016 23:31 ID Band Number: [id number] Mother's Name Verified: Yes Infant RN Verifying Infant: SKoko Mccullough, RN _ K. Steph, RN WEIGHT/LENGTH BABY A Birthweight (gm): 3200 Weight (lb): 7 Weight (oz): 1 Infant Length (in): 20.00 Infant Length (cm): 50.80 CORD INFORMATION BABY A No. Cord Vessels: 3 Nuchal Cord : N/A Cord Blood Taken: Yes-For Eval (Mom's Blood Type - or O+) Infant Suction: Mouth; Nose BABY B INFORMATION : N/A SIGNATURES Signature: with User ID: Mary
--- NOTE | 2016-12-10 01:14 | Admission Physical ---
Datetime Report Generated by CPN: 12/10/2016 01:14 CURRENT ADMISSION Chief Complaint: Scheduled Induction of Labor Admit Plan: Admit to Unit; Initiate Labor Induction Protocol ALLERGIES Medication Allergies: No Medication Allergies: No Known Allergies (12/08/2016) Medication Allergies: No Known Allergies (12/04/2016) Medication Allergies: No Known Allergies (12/02/2016) Medication Allergies: No Known Allergies (11/29/2016) Medication Allergies: No Known Allergies (11/28/2016) Medication Allergies: No Known Allergies (11/26/2016) Medication Allergies: No Known Allergies (11/22/2016) Medication Allergies: No Known Allergies (11/20/2016) Medication Allergies: No Known Allergies (11/13/2016) Latex: No Latex Allergies Food Allergies: N/A Environmental Allergies: N/A OBSTETRICAL HISTORY EDC: 12/29/2016 00:00 : 2 Para: 1 Term: 1 : 0 SAB: 0 IAB: 0 Ectopic: 0 Livin Cesareans: 0 VBACs: 0 Multiple Births: 0 Gestational Diabetes: No Rh Sensitization: No Incompetent Cervix: No HOMERO: No Infertility: No ART Treatment: No Uterine Anomaly: No IUGR: No Hx Previous C/S: No Macrosomia: No Hx Loss/Stillborn: No PIH: Yes Hx : No Placenta Previa/Abruption: No Depression/PP Depression: No PTL/PROM: No Post Hemorrhage: No Current Procedures: Ultrasound Obstetrical History Comments: G1 - 2009 6 lb 14 oz G2 - current PIH, Poly SEE RECORDS Alcohol: No Marijuana : No Cocaine: No Other Illicit Drugs: No Cigarettes: Never Smoker. 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 Surgery: No Heart Disease: No Hosp/Surgery: Yes Autoimmune Disorder: No Anesthetic Complications: No Kidney Disease: No Abnormal Pap Smear: No Neuro/Epilepsy: No Psychiatric Disorders: No Other Medical Diseases: No Hepatitis/Liver Disease: No Significant Family History: No Varicosities/Phlebitis: No Trauma/Violence : No Thyroid Dysfunction: No Medical History Comments: Hospitalization- Previous INFECTIOUS HISTORY Gonorrhea: No Genital Herpes: No Chlamydia: Yes Tuberculosis: No Syphilis: No Hepatitis: No HIV/AIDS Exposure: No Rash or Viral Illness: No HPV: No Infectious History Comments: Chlamydia - Apr 2016 PHYSICAL EXAM General: Normal HEENT: Normal Neurologic: Normal Thyroid: Normal Heart: Normal Lungs: Normal Breast: Normal Back: Normal Abdomen: Normal Genitourinary Exam: Normal Extremities: Normal DTRs: Normal Pelvic Type: Adequate Vital Signs: Reviewed VAGINAL EXAM Dilatation: 5 Dilatation: 0 Effacement: 70 Effacement: 0 Station: -2 Station: -3 Contraction Comments: q2min Contraction Comments: rare MEMBRANES Pooling: Negative Membranes: Ruptured Membranes: Intact Membranes: Intact Amniotic Fluid Color: Clear FETUS A EGA: 37.1 Monitoring: External US FHR- Baseline: 150 Variability: Moderate 6-25bpm Accelerations: 10X10 Decelerations: None Estimated Weight (gm): 3400 Presentation: Vertex PLANS FOR LABOR AND DELIVERY Labor and Delivery: None Pain Management: Natural Feeding Preference: Breast Benefit of Breast Feed Discussed: Yes Circumcision: Yes INFORMED CONSENT Informed Consent Obtained: Vaginal Delivery; Risks, Benefits and Alternatives Discussed Informed Consent Obtained: Vaginal Delivery; Induction of Labor; Risks, Benefits and Alternatives Discussed Informed Consent Obtained: Vaginal Delivery; Risks, Benefits and Alternatives Discussed Signature: with User ID: [email or web address]
[2016-12-10] MEDS: AMPICILLIN SODIUM 2 GM in NORMAL SALINE 100 ML IV SCH ×2 (01:59→05:14)
[2016-12-10] MEDS ORDERED: AMPICILLIN SOD INJ 2 GM VIAL ONE (05:08)
[2016-12-10] MEDS: IBUPROFEN 800 MG TABLET PO SCH ×3 (05:30→21:02)
[2016-12-10] MEDS ORDERED: GENTAMICIN SULFATE INJ 80 MG/2 ML VIAL ONE (05:45)
[2016-12-10] MEDS ORDERED: GENTAMICIN SULFATE INJ 80 MG/2 ML VIAL IM SCH (06:00)
[2016-12-10] MEDS: GENTAMICIN SULFATE 130 MG in DEXTROSE 5%-WATER 100 ML IV SCH ×2 (06:25→14:29)
[2016-12-10 07:01] LABS: HEMOGLOBIN 11.1 g/dL (12.0-15.5); HGB HCT DIFFERENCE 1.3; MEAN CORPUSCULAR HEMOGLOBIN 29.6 pg (27.0-33.4); MEAN CORPUSCULAR HGB CONC 34.8 g/dL (32.0-36.0); MEAN CORPUSCULAR VOLUME 85 fl (80-97); RED BLOOD COUNT 3.75 10^6/uL (3.72-5.28); RED CELL DISTRIBUTION WIDTH 13.1 % (11.5-14.0)
[2016-12-10 07:03] LABS: WHITE BLOOD COUNT 19.3 10^3/uL (4.0-10.5)
[2016-12-10] MEDS: SENNOSIDES/DOCUSATE 8.6-50 MG 1 EACH TABLET PO SCH (09:26)
[2016-12-10] MEDS: FERROUS SULFATE 325 MG TABLET PO SCH ×2 (09:26→17:38)
[2016-12-10] MEDS: DOCUSATE SODIUM 100 MG CAPSULE PO SCH ×2 (09:27→17:38)
[2016-12-10] MEDS: PRENATAL VITAMIN W-O CA NO5/FE FUMARATE/FA CAPSULE PO SCH (09:27)
--- NOTE | 2016-12-10 09:53 | PDOC PROGRESS REPORT ---
Subjective-OB Subjective: Post Delivery Day: 1 26 year old. Denies any needs at this time, states lochia is stable, pain is well controlled, voiding without difficulty. Physical Exam (OB) Vital Signs: Temp Pulse Resp BP Pulse Ox 98.2 F 90 18 117/47 L 100 12/10/16 04:00 12/10/16 04:00 12/10/16 04:00 12/10/16 04:00 12/10/16 04:00 Intake & Output 12/09/16 12/10/16 12/11/16 06:59 06:59 06:59 Weight 86.5 kg - PIH/Pre-Eclampsia DTR's: 1 + Clonus: Negative Headache: Absent Epigastric Pain: No Visual Changes: No - Lochia Lochia Amount: Small 10-25 ml Lochia Color: Rubra/Red - Abdomen Description: Soft Fundal Description: Firm, Midline Fundal Height: u/u - u/2 Objective-Diagnostic Laboratory: 12/10/16 06:46 12/08/16 19:06 12/10/16 06:46 WBC 19.3 H D RBC 3.75 Hgb 11.1 L Hct 32.0 L MCV 85 MCH 29.6 MCHC 34.8 RDW 13.1 Plt Count 127 L Assessment and Plan(PN) - Assessment and Plan (1) Vaginal delivery Is this a current diagnosis for this admission?: Yes Plan: routine pp care (2) History of depression Is this a current diagnosis for this admission?: Yes 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
[2016-12-10] MEDS: FAMOTIDINE 20 MG TABLET PO SCH ×2 (10:28→21:02)
[2016-12-10] MEDS ORDERED: AMOXICILLIN TR/POT CLAVULANATE 500-125 MG TAB PO ONE (16:30)
[2016-12-10] MEDS ORDERED: AMPICILLIN SODIUM 1 GM in NORMAL SALINE 50 ML IV SCH (18:00)
[2016-12-10] MEDS: AMOXICILLIN TR/POT CLAVULANATE 500-125 MG TAB PO SCH (21:03)
[2016-12-11] MEDS: IBUPROFEN 800 MG TABLET PO SCH ×3 (05:26→21:23)
[2016-12-11] MEDS: AMOXICILLIN TR/POT CLAVULANATE 500-125 MG TAB PO SCH ×3 (05:27→21:24)
[2016-12-11 08:15] VITALS: BP 111/71
[2016-12-11] MEDS: SENNOSIDES/DOCUSATE 8.6-50 MG 1 EACH TABLET PO SCH (09:26)
[2016-12-11] MEDS: DOCUSATE SODIUM 100 MG CAPSULE PO SCH ×2 (09:26→17:22)
[2016-12-11] MEDS: FAMOTIDINE 20 MG TABLET PO SCH ×2 (09:26→21:24)
[2016-12-11] MEDS: PRENATAL VITAMIN W-O CA NO5/FE FUMARATE/FA CAPSULE PO SCH (09:26)
[2016-12-11] MEDS: FERROUS SULFATE 325 MG TABLET PO SCH ×2 (09:26→17:22)
--- NOTE | 2016-12-11 12:56 | PDOC DISCHARGE SUMMARY ---
Final Diagnosis Discharge Date: 12/11/16 - Final Diagnosis (1) Gestational hypertension Is this a current diagnosis for this admission?: Yes (2) Polyhydramnios Is this a current diagnosis for this admission?: Yes (3) Chorioamnionitis, delivered, current hospitalization Is this a current diagnosis for this admission?: Yes (4) Vaginal delivery Is this a current diagnosis for this admission?: Yes Discharge Data - Discharge Medication Home Medications: Vit/Iron Fum/Folic AC [ Tablet] 1 tab PO DAILY 11/13/16 Reason(s) for Admission: Induction of Labor, PIH, Other Procedures: NST, Management of Obstetric Complications Intrapartum Procedure(s): Spontaneous Vaginal Delivery Complication(s): Laceration-Periurethral Laceration-Degree: 1st - Diagnosis Test Laboratory: Temp Pulse Resp BP Pulse Ox 97.7 F 82 16 111/71 100 12/11/16 12:31 12/11/16 12:31 12/11/16 12:31 12/11/16 12:31 12/11/16 12:31 12/08/16 12/08/16 12/10/16 18:37 19:06 06:46 RBC 3.82 3.75 Hgb 11.5 L 11.1 L Hct 32.3 L 32.0 L Urine Opiates Screen NEGATIVE - Discharge information/Instructions Discharge Activity: Activity As Tolerated, Balance Activity w/Rest, Pelvic Rest , No tub bath Discharge Diet: Regular Disposition: HOME, SELF-CARE Follow up with: [facility] in: 4, Weeks
== END 2016-12-11 23:23 | disposition home or self-care (01) | DRG 775 ==
LOC: LR 18:30 → 2S 12-10 01:13
PROVIDERS: ADMIT Obstetrics & Gynecology; ATTEND Student in an Organized Health Care Education/Training Program
PROC: 4A1HXCZ Monitoring of Products of Conception, Cardiac Rate, External Approach (ICD-10-PCS; 2016-12-08)
PROC: 10E0XZZ Delivery of Products of Conception, External Approach (ICD-10-PCS; principal; 2016-12-09)
PROC: 0UQMXZZ Repair Vulva, External Approach (ICD-10-PCS; 2016-12-09)
PROC: 0HQ9XZZ Repair Perineum Skin, External Approach (ICD-10-PCS; 2016-12-09)
DX: O41.1230 Chorioamnionitis, third trimester, not applicable or unspecified (principal); O71.82 Other specified trauma to perineum and vulva; O76 Abnormality in fetal heart rate and rhythm complicating labor and delivery; O40.3XX0 Polyhydramnios, third trimester, not applicable or unspecified; Z3A.37 37 weeks gestation of pregnancy; Z37.0 Single live birth
CPT/HCPCS: 36415; 80053; 80307; 81001; 82570; 83615; 84156; 84550; 85025; 85027; 86592; 86850; 86900; 86901; 88307; 94760; J0290; J1580; J2370; J2590; J3010; J3490